=== PATIENT | female | born 1995 | race African-American/Black ===

== ENCOUNTER 2022-11-27 10:16 | Inpatient (IN) | payer MEDICAID, OTHER ==
[~2022-11-27] VITALS: Ht 157.5 cm; Wt 64.0 kg
[2022-11-27] MEDS ORDERED: LORazepam 2 MG/ML VIAL IM ONE (11:30)
[2022-11-27] MEDS ORDERED: DiphenhydrAMINE HCL 50 MG/ML VIAL IM ONE (11:30)
[2022-11-27] MEDS ORDERED: HALOPERIDOL LACTATE 5 MG/ML VIAL IM ONE (11:30)
[2022-11-27 12:25] LABS: COVID AG,FIA SOURCE NASAL SWAB
[2022-11-27 14:50] LABS: ANION GAP 11 mmol/L (8-16); CALCIUM, TOTAL 9.2 mg/dL (8.8-10.5); CARBON DIOXIDE 24 mmol/L (22-29); CHLORIDE 101 mmol/L (98-107); CREATININE 1.11 mg/dL (0.60-1.30); GLUCOSE,RANDOM 79 mg/dL (70-110); POTASSIUM 3.7 mmol/L (3.5-5.1); SODIUM SERUM 136 mmol/L (136-145); UREA NITROGEN, BLOOD 9 mg/dL (7-18)
[2022-11-27 14:52] LABS: GLOMERULAR FILTR. RATE CALC 43 mL/min (>60)
[2022-11-27 14:52] LABS: BASOPHILS % (AUTO) 0.4 % (0.0-2.0); EOSINOPHILS % (AUTO) 0.2 % (1.0-6.0); HEMATOCRIT 51.8 % (36-46); HEMOGLOBIN 15.6 g/dL (12.0-16.0); LYMPHOCYTES # (AUTO) 0.8 K/uL (1.0-4.8); LYMPHOCYTES % (AUTO) 6.1 % (22.0-44.0); MEAN CORPUSCULAR HEMOGLOBIN 31.4 pg (26.0-34.0); MEAN CORPUSCULAR HGB CONC 30.1 G/dL (31.0-37.0); MEAN CORPUSCULAR VOLUME 104 fL (80-100); MONOCYTES # (AUTO) 0.7 K/uL (0.1-1.0); MONOCYTES % (AUTO) 5.7 % (2.0-9.0); NEUTROPHILS # (AUTO) 11.4 K/uL (1.8-7.7); NEUTROPHILS % (AUTO) 87.6 % (40.0-70.0); PLATELET COUNT (AUTO) 215 K/uL (150-450); RED BLOOD CELL COUNT(AUTO) 4.98 MIL/uL (4.00-5.20); RED CELL DISTRIBUTION WIDTH 15.9 % (11.5-14.5)
[2022-11-27 15:01] LABS: ALANINE AMINOTRANSFERASE 23 U/L (12-78); ALBUMIN 3.9 g/dL (3.4-5.0); ALKALINE PHOSPHATASE 47 U/L (46-116); ASPARTATE AMINOTRANSFERASE 28 U/L (15-37); BILIRUBIN,TOTAL 0.4 mg/dL (0.1-1.0); HCG,QUANTITATIVE < 1 mIU/mL (0-6); TOTAL PROTEIN, SERUM 7.9 g/dL (6.4-8.2)
[2022-11-27] MEDS ORDERED: HALOPERIDOL 5 MG TABLET PO PRN (18:15)
[2022-11-27] MEDS ORDERED: ZOLPIDEM TARTRATE 10 MG TABLET PO PRN (18:15)
[2022-11-27] MEDS ORDERED: LORazepam 2 MG TABLET PO PRN (18:15)
[2022-11-28] MEDS ORDERED: ALBUTEROL SULFATE HFA 90 MCG/PUFF 8 GM INHALER IH PRN (07:15)
[2022-11-28] MEDS ORDERED: LOPERAMIDE HCL 2 MG CAPSULE PO PRN (07:15)
[2022-11-28] MEDS ORDERED: DOCUSATE SODIUM 100 MG CAPSULE PO PRN (07:15)
[2022-11-28] MEDS ORDERED: MAGNESIUM HYDROXIDE SUSPENSION 30 ML UDCUP PO PRN (07:15)
[2022-11-28] MEDS ORDERED: PETROLATUM,WHITE 28 GM JELLY TP PRN (07:15)
[2022-11-28] MEDS ORDERED: CloNIDine HCL 0.1 MG TABLET PO PRN (07:15)
[2022-11-28] MEDS ORDERED: GuaiFENesin/D-METHORPHAN [SUGAR-FREE] 200-20MG/10 ML SYRUP UDCUP PO PRN (07:15)
[2022-11-28] MEDS ORDERED: ONDANSETRON HCL 4 MG TABLET PO PRN (07:15)
[2022-11-28] MEDS ORDERED: ACETAMINOPHEN 325 MG TABLET PO PRN (07:15)
[2022-11-28] MEDS ORDERED: MAG HYDROX/AL HYDROX/SIMETH ES 30 ML SUSPENSION UDCUP PO PRN (07:15)
[2022-11-28] MEDS ORDERED: IBUPROFEN 400 MG TABLET PO PRN (07:15)
[2022-11-28 09:48] VITALS: BP 123/77
[2022-11-28] MEDS: ARIPiprazole 15 MG TABLET PO SCH (12:11)
[2022-11-28] MEDS: BuPROPion HCL XL 150 MG ER TABLET PO SCH (12:11)
[2022-11-28 16:30] VITALS: BP 95/65
[2022-11-29] MEDS: ARIPiprazole 15 MG TABLET PO SCH (08:34)
[2022-11-29] MEDS: BuPROPion HCL XL 150 MG ER TABLET PO SCH (08:35)
[2022-11-29 10:20] VITALS: BP 104/69
[2022-11-29 16:10] VITALS: BP 107/60
[2022-11-30] MEDS: ARIPiprazole 15 MG TABLET PO SCH (08:23)
[2022-11-30] MEDS: BuPROPion HCL XL 150 MG ER TABLET PO SCH (08:24)
[2022-11-30 08:40] VITALS: BP 122/86
[2022-12-01 07:58] LABS: BASOPHILS % (AUTO) 0.4 % (0.0-2.0); EOSINOPHILS % (AUTO) 4.3 % (1.0-6.0); HEMATOCRIT 37.4 % (36-46); HEMOGLOBIN 12.2 g/dL (12.0-16.0); LYMPHOCYTES # (AUTO) 2.2 K/uL (1.0-4.8); LYMPHOCYTES % (AUTO) 56.2 % (22.0-44.0); MEAN CORPUSCULAR HEMOGLOBIN 30.4 pg (26.0-34.0); MEAN CORPUSCULAR HGB CONC 32.7 G/dL (31.0-37.0); MEAN CORPUSCULAR VOLUME 93 fL (80-100); MONOCYTES # (AUTO) 0.3 K/uL (0.1-1.0); MONOCYTES % (AUTO) 7.8 % (2.0-9.0); NEUTROPHILS # (AUTO) 1.2 K/uL (1.8-7.7); NEUTROPHILS % (AUTO) 31.3 % (40.0-70.0); PLATELET COUNT (AUTO) 262 K/uL (150-450); RED BLOOD CELL COUNT(AUTO) 4.02 MIL/uL (4.00-5.20); RED CELL DISTRIBUTION WIDTH 12.6 % (11.5-14.5)
[2022-12-01] MEDS: ARIPiprazole 15 MG TABLET PO SCH (08:03)
[2022-12-01] MEDS: BuPROPion HCL XL 150 MG ER TABLET PO SCH (08:03)
[2022-12-01 08:52] VITALS: BP 119/79
[2022-12-01] MEDS: NICOTINE 14 MG/24 HOUR PATCH TD PRN (19:25)
[2022-12-01 21:51] VITALS: BP 130/83
[2022-12-02 08:00] VITALS: BP 117/59
[2022-12-02] MEDS: ARIPiprazole 15 MG TABLET PO SCH (09:05)
[2022-12-02] MEDS: BuPROPion HCL XL 150 MG ER TABLET PO SCH (09:07)
[2022-12-02 16:00] VITALS: BP 123/75
[2022-12-02 16:59] LABS: APPEARANCE,URINE CLEAR (CLEAR); BILIRUBIN,URINE NEGATIVE (NEGATIVE); GLUCOSE, URINE (UA) NEGATIVE (NEGATIVE); KETONES,URINE NEGATIVE (NEGATIVE); LEUKOCYTE ESTERASE ,URINE NEGATIVE (NEGATIVE); NITRATE,URINE NEGATIVE (NEGATIVE); OCCULT BLOOD,URINE NEGATIVE (NEGATIVE); PH,URINE 6.5 (5.0-8.0); PROTEIN,URINE TRACE mg/dL (NEGATIVE); SPECIFIC GRAVITIY, URINE 1.026 (1.003-1.030); UROBILINOGEN,URINE <=1.0 mg/dL (<=1.0)
[2022-12-02 17:05] LABS: AMPHET/METH SCREEN,URINE POSITIVE (NEGATIVE); BARBITURATE SCREEN, URINE NEGATIVE (NEGATIVE); BENZODIAZEPINES SCREEN,URINE POSITIVE (NEGATIVE); CANNABINOID SCREEN,URINE POSITIVE (NEGATIVE); COCAINE SCREEN,URINE NEGATIVE (NEGATIVE); METHADONE SCREEN, URINE NEGATIVE (NEGATIVE); OPIATE SCREEN,URINE NEGATIVE (NEGATIVE); PHENCYCLIDINE SCREEN,URINE NEGATIVE (NEGATIVE)
[2022-12-02] MEDS: NICOTINE 14 MG/24 HOUR PATCH TD PRN (18:19)
[2022-12-03 06:09] LABS: COVID AG,FIA SOURCE NASAL SWAB
[2022-12-03] MEDS: BuPROPion HCL XL 150 MG ER TABLET PO SCH (07:56)
[2022-12-03] MEDS: ARIPiprazole 15 MG TABLET PO SCH (07:56)
[2022-12-03 08:28] VITALS: BP 137/88
[2022-12-03] MEDS ORDERED: ARIP15TA27 PO (10:47)
[2022-12-03] MEDS ORDERED: BUPR-49 PO (10:47)
== END 2022-12-03 13:14 | disposition home or self-care (01) | DRG 750 ==
LOC: EMS 10:18 → EDBD 18:42 → 3EC 18:42
PROVIDERS: ADMIT Psychiatry & Neurology Child & Adolescent Psychiatry; ATTEND Psychiatry & Neurology Child & Adolescent Psychiatry
DX: F20.9 Schizophrenia, unspecified (principal); G93.40 Encephalopathy, unspecified; D72.829 Elevated white blood cell count, unspecified; I10 Essential (primary) hypertension; Z20.822 Contact with and (suspected) exposure to COVID-19
CPT/HCPCS: 80053; 80307; 81003; 82140; 84702; 85025; 93005; 99291; G0480; J1200; J1630; J2060